=== PATIENT | female | born 1985 | race Caucasian/White ===

== ENCOUNTER 2018-06-12 22:29 | Emergency (ER) | payer SELFPAY ==
[~2018-06-12] VITALS: Ht 170.2 cm; Wt 132.0 kg
[2018-06-13] MEDS: FAMOTIDINE 20MG TABLET PO ONE (01:13)
[2018-06-13] MEDS: PREDNISONE 20MG TABLET PO ONE (01:13)
[2018-06-13 02:40] VITALS: BP 117/79
== END 2018-06-13 02:42 | disposition home or self-care (01) ==
LOC: ER 22:29
DX: T78.40XA Allergy, unspecified, initial encounter (principal); L50.9 Urticaria, unspecified; F12.10 Cannabis abuse, uncomplicated; F41.9 Anxiety disorder, unspecified; F17.200 Nicotine dependence, unspecified, uncomplicated; F43.10 Post-traumatic stress disorder, unspecified; X58.XXXA Exposure to other specified factors, initial encounter
CPT/HCPCS: 99283; J7512